=== PATIENT | female | born 1985 | race African-American/Black ===

== ENCOUNTER 2016-10-20 13:52 | Emergency (ER) | payer SELFPAY ==
--- NOTE | 2016-10-20 14:17 | ER Document Report ---
ED Medical Screen (RME) - General Stated Complaint: CHEST PAIN Notes: 31 yo female c/o pain left chest under rib cage. pain started tuesday, progressively worsening. hurts to breath. hx/o spontaneous pneumothorax about 4 yrs ago. feels similar. TRAVEL OUTSIDE OF THE [place] IN LAST 30 DAYS: No - Related Data Allergies/Adverse Reactions: No Known Allergies Allergy (Verified 08/18/16 11:59) Past Medical History - Immunizations Hx Diphtheria, Pertussis, Tetanus Vaccination: Yes Physical Exam - Vital signs Vitals: Temp Pulse Resp BP Pulse Ox 98.4 F 93 16 105/76 100 10/20/16 14:12 10/20/16 14:12 10/20/16 14:12 10/20/16 14:12 10/20/16 14:12 Course - Vital Signs Vital signs: Temp Pulse Resp BP Pulse Ox 98.4 F 93 16 105/76 100 10/20/16 14:12 10/20/16 14:12 10/20/16 14:12 10/20/16 14:12 10/20/16 14:12
--- NOTE | 2016-10-20 16:16 | ER Document Report ---
ED Respiratory Problem - General Chief Complaint: Breathing Difficulty Stated Complaint: CHEST PAIN Mode of Arrival: Ambulatory Information source: Patient TRAVEL OUTSIDE OF THE [place] IN LAST 30 DAYS: No - HPI Patient complains to provider of: Chest pain Onset: Other - 3 DAYS Duration: Intermittent episodes Initiating Event: Other - NO INJURY OR ILLNESS. No: Exertion, URI Quality of pain: Sharp Severity: Moderate Context: Smoker, Other - H/O PTX, THIS FEELS SIMILAR. denies: Hx asthma, Recent cardiac event, Recent immobilization, Recent surgery Chest pain/discomfort: Left - 9th & 10th RIB AREA Sputum amount: None Associated symptoms: Chest pain/discomfort. denies: Chills, Cough, Fever, Leg/ calf/joint pain Worsened by: DEEP BREATH, COUGH, SNEEZE Similar symptoms previously: Yes - W/ PTX Recently seen / treated by doctor: No - Related Data Allergies/Adverse Reactions: No Known Allergies Allergy (Verified 10/20/16 14:15) Past Medical History - General Information source: Patient - Social History Smoking Status: Current Every Day Smoker Chew tobacco use (# tins/day): No Smoking Education Provided: No - 1 MIN. Frequency of alcohol use: None Drug Abuse: None Lives with: Spouse/Significant other Family History: Reviewed & Not Pertinent Patient has suicidal ideation: No Patient has homicidal ideation: No - Past Medical History Cardiac Medical History: Reports: None Pulmonary Medical History: Reports: Other - SPONT. PTX. EENT Medical History: Reports: None Neurological Medical History: Reports: None Endocrine Medical History: Reports: None Renal/ Medical History: Reports: None. Denies: Hx Peritoneal Dialysis Malignancy Medical History: Reports: None GI Medical History: Reports: None Musculoskeltal Medical History: Reports None Psychiatric Medical History: Reports: None Surgical Hx: Negative - Immunizations Hx Diphtheria, Pertussis, Tetanus Vaccination: Yes Review of Systems - Review of Systems Constitutional: No symptoms reported EENT: No symptoms reported Cardiovascular: No symptoms reported. denies: Syncope, Dizziness, Lightheaded, Edema Respiratory: See HPI Gastrointestinal: No symptoms reported Genitourinary: No symptoms reported Female Genitourinary: denies: Musculoskeletal: No symptoms reported Skin: No symptoms reported Neurological/Psychological: No symptoms reported Physical Exam - Vital signs Vitals: Temp Pulse Resp BP Pulse Ox 98.4 F 93 16 105/76 100 10/20/16 14:12 10/20/16 14:12 10/20/16 14:12 10/20/16 14:12 10/20/16 14:12 Interpretation: Normal. No: Tachycardic, Tachypneic, Febrile - General General appearance: Appears well, Alert In distress: None - HEENT Head: Normocephalic Eyes: Normal Conjunctiva: Normal Ears: Normal Nasal: Normal Mouth/Lips: Normal Mucous membranes: Normal - Respiratory Respiratory status: No respiratory distress Chest status: Nontender Breath sounds: Normal Notes: INTERNAL TENDERNESS TO PERCUSSION OVER AREA OF COMPLAINT - Cardiovascular Rhythm: Regular - Abdominal Inspection: Normal - Extremities General upper extremity: Normal inspection General lower extremity: Normal inspection - Neurological Neuro grossly intact: Yes Cognition: Normal Orientation: AAOx4 - Psychological Associated symptoms: Normal affect, Normal mood - Skin Skin Temperature: Warm Skin Moisture: Dry Skin Color: Normal Skin Turgor: Elastic Course - Vital Signs Vital signs: Temp Pulse Resp BP Pulse Ox 98.4 F 93 18 105/76 100 10/20/16 14:12 10/20/16 14:12 10/20/16 15:28 10/20/16 14:12 10/20/16 14:12 - Diagnostic Test Radiology reviewed: Image reviewed, Reports reviewed Discharge - Discharge Clinical Impression: Pleuritic chest pain Condition: Stable Disposition: HOME, SELF-CARE Instructions: Pleurisy ([facility]), Anti-Inflammatory Medication ([facility]), Oral Narcotic Medication ([facility]), Stop Smoking ([facility]) Additional Instructions: STOP SMOKING. TAKE IBUPROFEN OR NAPROXEN TO HELP REDUCE INFLAMMATION. YOU MAY TAKE NORCO FOR PAIN IF NEEDED. FOLLOW UP IF NOT IMPROVING IN 2-3 DAYS, OR SOONER IF PROBLEMS. Prescriptions: Hydrocodone/Acetaminophen [[place] 5-325 mg Tablet] 1 tab PO Q4HP PRN #14 tablet PRN Reason: For Pain Forms: Smoking Cessation Education
[2016-10-20 16:45] VITALS: BP 130/80
--- NOTE | 2016-10-21 11:25 | EKG REPORT ---
SEVERITY:- OTHERWISE NORMAL ECG - SINUS RHYTHM VENTRICULAR PREMATURE COMPLEX : Confirmed by: Antonieta Gomez 21-Oct-2016 11:24:35
== END 2016-10-20 16:45 | disposition home or self-care (01) ==
LOC: ER 13:52
DX: R07.81 Pleurodynia (principal); R06.02 Shortness of breath; R07.9 Chest pain, unspecified; F17.210 Nicotine dependence, cigarettes, uncomplicated
CPT/HCPCS: 71020; 93005; 93010; 99285

== ENCOUNTER 2017-04-09 11:46 | Emergency (ER) | payer SELFPAY ==
[2017-04-09 12:36] LABS: APPEARANCE,URINE CLOUDY; BILIRUBIN,URINE NEGATIVE (NEGATIVE); GLUCOSE, URINE NEGATIVE (NEGATIVE); KETONES,URINE NEGATIVE (NEGATIVE); LEUKOCYTE ESTERASE,URINE LARGE (NEGATIVE); NITRITE,URINE NEGATIVE (NEGATIVE); PROTEIN,URINE NEGATIVE (NEGATIVE); URINE SPECIFIC GRAVITY 1.027
--- NOTE | 2017-04-09 13:19 | ER Document Report ---
ED General - General Chief Complaint: Abdominal Pain Stated Complaint: ABDOMINAL PAIN Time Seen by Provider: 04/09/17 12:05 Mode of Arrival: Ambulatory Information source: Patient Notes: 31-year-old female presents with complaints of dysuria urinary hesitation frequency. Patient denies any fevers or chills denies any nausea or vomiting, patient notes she had some flank pain a week ago but has none now. Patient states this feels like previous urinary tract infections TRAVEL OUTSIDE OF THE [place] IN LAST 30 DAYS: No - HPI Onset: Just prior to arrival Onset/Duration: Sudden Quality of pain: Burning Severity: Mild Pain Level: 1 Associated symptoms: Other Exacerbated by: Denies Relieved by: Denies Similar symptoms previously: Yes Recently seen / treated by doctor: No - Related Data Allergies/Adverse Reactions: No Known Allergies Allergy (Verified 10/20/16 14:15) Past Medical History - Social History Smoking Status: Never Smoker Cigarette use (# per day): No Chew tobacco use (# tins/day): No Smoking Education Provided: No Frequency of alcohol use: None Drug Abuse: None Family History: Reviewed & Not Pertinent Renal/ Medical History: Denies: Hx Peritoneal Dialysis Surgical Hx: Negative - Immunizations Hx Diphtheria, Pertussis, Tetanus Vaccination: Yes Review of Systems - Review of Systems Notes: REVIEW OF SYSTEMS: CONSTITUTIONAL : Denies fever, chills, or sweats. Denies recent illness. EENT: Denies eye, ear, throat, or mouth pain or symptoms. Denies nasal or sinus congestion or discharge. Denies throat, tongue, or mouth swelling or difficulty swallowing. CARDIOVASCULAR: Denies chest pain. Denies palpitations or racing or irregular heart beat. Denies ankle edema. RESPIRATORY: Denies cough, cold, or chest congestion. Denies shortness of breath, difficulty breathing, or wheezing. GASTROINTESTINAL: Denies abdominal pain or distention. Denies nausea, vomiting , or diarrhea. Denies blood in vomitus, stools, or per rectum. Denies black, tarry stools. Denies constipation. GENITOURINARY: Admits to suprapubic pressure urinary frequency hesitation FEMALE GENITOURINARY: Denies vaginal bleeding, heavy or abnormal periods, irregular periods. Denies vaginal discharge or odor. MUSCULOSKELETAL: Denies back or neck pain or stiffness. Denies joint pain or swelling. SKIN: Denies rash, lesions or sores. HEMATOLOGIC : Denies easy bruising or bleeding. LYMPHATIC: Denies swollen, enlarged glands. NEUROLOGICAL: Denies confusion or altered mental status. Denies passing out or loss of consciousness. Denies dizziness or lightheadedness. Denies headache. Denies weakness or paralysis or loss of use of either side. Denies problems with gait or speech. Denies sensory loss, numbness, or tingling. Denies seizures. PSYCHIATRIC: Denies anxiety or stress. Denies depression, suicidal ideation, or homicidal ideation. ALL OTHER SYSTEMS REVIEWED AND NEGATIVE. PHYSICAL EXAMINATION: GENERAL: Well-appearing, well-nourished and in no acute distress. HEAD: Atraumatic, normocephalic. EYES: Pupils equal round and reactive to light, extraocular movements intact, conjunctiva are normal. ENT: Nares patent, oropharynx clear without exudates. Moist mucous membranes. NECK: Normal range of motion, supple without lymphadenopathy LUNGS: Breath sounds clear to auscultation bilaterally and equal. No wheezes rales or rhonchi. HEART: Regular rate and rhythm without murmurs ABDOMEN: Soft, mild suprapubic tenderness on palpation no rebound no guarding Female : deferred Musculoskeletal: Normal range of motion, no pitting or edema. No cyanosis. NEUROLOGICAL: Cranial nerves grossly intact. Normal speech, normal gait. Normal sensory, motor exams PSYCH: Normal mood, normal affect. SKIN: Warm, Dry, normal turgor, no rashes or lesions noted. Dictation was performed using [employer] voice recognition software Physical Exam - Vital signs Vitals: Temp Pulse Resp BP Pulse Ox 98.1 F 76 16 109/66 100 04/09/17 11:53 04/09/17 11:53 04/09/17 11:53 04/09/17 11:53 04/09/17 11:53 Course - Re-evaluation Re-evalutation: 04/09/17 14:02 Patient is noted to have suprapubic tenderness, urinalysis is consistent with a UTI, patient is not , otherwise she looks well is in no distress will be treated with antibiotics and Pyridium After performing a Medical Screening Examination, I estimate there is LOW risk for ACUTE APPENDICITIS, BOWEL OBSTRUCTION, ACUTE CHOLECYSTITIS, PERFORATED DIVERTICULITIS, INCARCERATED HERNIA, PANCREATITIS, PELVIC INFLAMMATORY DISEASE, PERFORATED ULCER, ECTOPIC , or TUBO-OVARIAN ABSCESS, thus I consider the discharge disposition reasonable. Also, there is no evidence or peritonitis , sepsis, or toxicity. I have reevaluated this patient multiple times and no significant life threatening changes are noted. The patient and I have discussed the diagnosis and risks, and we agree with discharging home with close follow-up with the understanding that symptoms and presentations can change. We also discussed returning to the Emergency Department immediately if new or worsening symptoms occur. We have discussed the symptoms which are most concerning (e.g., bloody stool, fever, changing or worsening pain, vomiting) that necessitate immediate return. - Vital Signs Vital signs: Temp Pulse Resp BP Pulse Ox 97.9 F 59 L 16 109/79 99 04/09/17 13:23 04/09/17 13:23 04/09/17 13:23 04/09/17 13:25 04/09/17 13:23 - Laboratory Laboratory results interpreted by me: 04/09/17 12:15 Urine Urobilinogen 2.0 H Ur Leukocyte Esterase LARGE H Discharge - Discharge Clinical Impression: Dysuria UTI (urinary tract infection) Qualifiers: Urinary tract infection type: acute cystitis Hematuria presence: without hematuria Qualified Code(s): N30.00 - Acute cystitis without hematuria Condition: Stable Disposition: HOME, SELF-CARE Instructions: Urinary Tract Infection ([facility]) Additional Instructions: Follow up with your physician tomorrow for further care or return to the ED IMMEDIATELY if symptoms worsen or new concerns occur. If you cannot afford to follow up with your primary care physician a list of low cost clinics have been provided at the end of your discharge papers as well. Prescriptions: Cephalexin Monohydrate [Keflex 500 mg Capsule] 500 mg PO BID #14 capsule Phenazopyridine HCl [Pyridium] 200 mg PO Q8 #9 tablet Forms: Return to Work
[2017-04-09 13:50] VITALS: BP 109/79
== END 2017-04-09 13:30 | disposition home or self-care (01) ==
LOC: ER 11:46
DX: N30.00 Acute cystitis without hematuria (principal)
CPT/HCPCS: 81001; 81025; 99284

== ENCOUNTER 2017-07-04 08:49 | Observation (INO) | payer SELFPAY ==
[2017-07-04] MEDS ORDERED: HYDROCODONE/ACETAMINOPHEN 5-325 MG TABLET PO ONE (09:13)
--- NOTE | 2017-07-04 09:17 | ER Document Report ---
ED Medical Screen (RME) - General Chief Complaint: Chest Pain Stated Complaint: CHEST PAIN Time Seen by Provider: 07/04/17 09:12 Notes: Pt states she has left sided cp since yesterday. Has had chest tube for ptx before. no cardiac hx. Has had cough. TRAVEL OUTSIDE OF THE [place] IN LAST 30 DAYS: No - Related Data Allergies/Adverse Reactions: No Known Allergies Allergy (Verified 07/04/17 08:51) Past Medical History - Social History Chew tobacco use (# tins/day): No Frequency of alcohol use: None Drug Abuse: None Renal/ Medical History: Denies: Hx Peritoneal Dialysis - Immunizations Hx Diphtheria, Pertussis, Tetanus Vaccination: Yes Physical Exam - Vital signs Vitals: Temp Pulse BP Pulse Ox 98.7 F 46 L 125/83 93 07/04/17 08:53 07/04/17 08:53 07/04/17 08:53 07/04/17 08:53 Course - Vital Signs Vital signs: Temp Pulse Resp BP Pulse Ox 98.7 F 46 L 125/83 93 07/04/17 08:53 07/04/17 08:53 07/04/17 08:53 07/04/17 08:53
--- NOTE | 2017-07-04 09:53 | RADIOLOGY REPORT (SQ) ---
EXAM DESCRIPTION: CHEST PA/LAT COMPLETED DATE/TIME: 07/04/2017 9:34 am REASON FOR STUDY: left cp COMPARISON: CT chest 12/12/2013 Chest films 12/20/2013, 10/20/2016 EXAM PARAMETERS: NUMBER OF VIEWS: two views TECHNIQUE: Digital Frontal and Lateral radiographic views of the chest acquired. RADIATION DOSE: NA LIMITATIONS: none FINDINGS: LUNGS AND PLEURA: Left apical 10 to 20% pneumothorax. This report was called to Dr. Daya edwards. Right apical bulla or blebs are present. No right pneumothorax. No pleural effusions. No acute infiltrates. No definite [id number] mediastinal shift. MEDIASTINUM AND HILAR STRUCTURES: No masses or contour abnormalities. HEART AND VASCULAR STRUCTURES: Heart normal size. No evidence for failure. BONES: No acute findings. HARDWARE: None in the chest. OTHER: No other significant finding. IMPRESSION: 10 to 20% left-sided pneumothorax. COMMENT: Pertinent findings on the imaging study reported as a CRITICAL RESULT to Dr. Rogers at09 :45 on 07/04/2017. Category of Critical Result: Left pneumothorax TECHNICAL DOCUMENTATION: JOB ID: [id number] [employer]- All Rights Reserved
[2017-07-04 10:28] LABS: ABSOLUTE BASOPHILS # (AUTO) 0.1 10^3/uL (0.0-0.2); ABSOLUTE EOSINOPHILS # (AUTO) 0.2 10^3/uL (0.0-0.6); ABSOLUTE LYMPHOCYTES (AUTO) 2.4 10^3/uL (0.5-4.7); ABSOLUTE MONOCYTES (AUTO) 0.5 10^3/uL (0.1-1.4); ABSOLUTE NEUT (AUTO) 4.5 10^3/uL (1.7-8.2); BASOPHILS % (AUTO) 0.7 % (0-2); EOSINOPHILS % (AUTO) 2.3 % (0-6); HEMATOCRIT 39.6 % (36.0-47.0); HEMOGLOBIN 13.2 g/dL (12.0-15.5); LYMPHOCYTES % (AUTO) 31.4 % (13-45); MEAN CORPUSCULAR HEMOGLOBIN 30.6 pg (27.0-33.4); MEAN CORPUSCULAR HGB CONC 33.3 g/dL (32.0-36.0); MEAN CORPUSCULAR VOLUME 92 fl (80-97); MONOCYTES % (AUTO) 6.7 % (3-13); RED BLOOD COUNT 4.31 10^6/uL (3.72-5.28); RED CELL DISTRIBUTION WIDTH 13.1 % (11.5-14.0); SEGMENTED NEUTROPHILS % (AUTO) 58.9 % (42-78); WHITE BLOOD COUNT 7.7 10^3/uL (4.0-10.5)
[2017-07-04 10:36] LABS: APPEARANCE,URINE SLIGHTLY-CLOUDY; BILIRUBIN,URINE NEGATIVE (NEGATIVE); GLUCOSE, URINE NEGATIVE (NEGATIVE); KETONES,URINE NEGATIVE (NEGATIVE); LEUKOCYTE ESTERASE,URINE NEGATIVE (NEGATIVE); NITRITE,URINE NEGATIVE (NEGATIVE); PROTEIN,URINE NEGATIVE (NEGATIVE); URINE SPECIFIC GRAVITY 1.026; UROBILINOGEN,URINE NEGATIVE mg/dL (<2.0)
[2017-07-04 10:53] LABS: ALANINE AMINOTRANSFERASE 23 U/L (9-52); ALBUMIN 4.4 g/dL (3.5-5.0); ALKALINE PHOSPHATASE 43 U/L (38-126); ANION GAP 11 (5-19); ASPARTATE AMINO TRANSFERASE 17 U/L (14-36); BILIRUBIN,DIRECT 0.2 mg/dL (0.0-0.4); BILIRUBIN,TOTAL 0.4 mg/dL (0.2-1.3); BLOOD UREA NITROGEN 15 mg/dL (7-20); CALCIUM 9.5 mg/dL (8.4-10.2); CARBON DIOXIDE 26 mmol/L (22-30); CHLORIDE 107 mmol/L (98-107); CREATININE RESULT 0.66 mg/dL (0.52-1.25); GLUCOSE 80 mg/dL (75-110); POTASSIUM 4.7 mmol/L (3.6-5.0); SODIUM 143.6 mmol/L (137-145); TOTAL PROTEIN 7.8 g/dL (6.3-8.2)
[2017-07-04] MEDS ORDERED: NORMAL SALINE 1000 ML 1,000 ML IV ONE ×3 (11:14→15:36)
[2017-07-04] MEDS ORDERED: KETAMINE HCL INJ 500 MG/10 ML VIAL IV ONE (11:25)
[2017-07-04] MEDS ORDERED: MIDAZOLAM 2 MG/2 ML INJ IV ONE (11:25)
[2017-07-04] MEDS ORDERED: LIDOCAINE 1%/EPINEPHRINE INJ 20 ML VIAL INJ ONE (11:25)
--- NOTE | 2017-07-04 11:48 | ER Document Report ---
ED General - General Chief Complaint: Chest Pain Stated Complaint: CHEST PAIN Time Seen by Provider: 07/04/17 09:12 TRAVEL OUTSIDE OF THE [place] IN LAST 30 DAYS: No - HPI Patient complains to provider of: Left-sided chest pain Notes: Patient coming in left-sided chest pain. Patient's days ongoing since last night similar pain with a spontaneous pneumothorax. Patient states she does intermittently smoke marijuana and does smoke cigarettes. Patient denies any recent travel denies fevers chills nausea vomiting diarrhea. Patient is resting comfortably sleeping upon my evaluation. Easily arousable. Denies any trauma. - Related Data Allergies/Adverse Reactions: No Known Allergies Allergy (Verified 07/04/17 08:51) Home Medications: Current Home Medications No Home Medications 07/04/17 [History] Past Medical History - Social History Smoking Status: Current Every Day Smoker Chew tobacco use (# tins/day): No Frequency of alcohol use: None Drug Abuse: None Family History: Reviewed & Not Pertinent Patient has suicidal ideation: No Renal/ Medical History: Denies: Hx Peritoneal Dialysis - Immunizations Hx Diphtheria, Pertussis, Tetanus Vaccination: Yes Review of Systems - Review of Systems Constitutional: No symptoms reported EENT: No symptoms reported Cardiovascular: Chest pain Respiratory: No symptoms reported Gastrointestinal: No symptoms reported Genitourinary: No symptoms reported Female Genitourinary: No symptoms reported Musculoskeletal: No symptoms reported Skin: No symptoms reported Hematologic/Lymphatic: No symptoms reported Neurological/Psychological: No symptoms reported -: Yes All other systems reviewed and negative Physical Exam - Vital signs Vitals: Temp Pulse BP Pulse Ox 98.7 F 46 L 125/83 93 07/04/17 08:53 07/04/17 08:53 07/04/17 08:53 07/04/17 08:53 Interpretation: Normal - General General appearance: Appears well, Alert - HEENT Head: Normocephalic, Atraumatic Eyes: Normal Pupils: PERRL - Respiratory Respiratory status: No respiratory distress Chest status: Nontender Breath sounds: Other - No breath sounds left upper chest normal on the right Chest palpation: Normal - Cardiovascular Rhythm: Regular Heart sounds: Normal auscultation Murmur: No - Abdominal Inspection: Normal Distension: No distension Bowel sounds: Normal Tenderness: Nontender Organomegaly: No organomegaly - Back Back: Normal, Nontender - Extremities General upper extremity: Normal inspection, Nontender, Normal color, Normal ROM , Normal temperature General lower extremity: Normal inspection, Nontender, Normal color, Normal ROM , Normal temperature, Normal weight bearing. No: Ellis's sign - Neurological Neuro grossly intact: Yes Cognition: Normal Orientation: AAOx4 Artie Coma Scale Eye Opening: Spontaneous Artie Coma Scale Verbal: Oriented Artie Coma Scale Motor: Obeys Commands Melissa Coma Scale Total: 15 Speech: Normal Motor strength normal: LUE, RUE, LLE, RLE Sensory: Normal - Psychological Associated symptoms: Normal affect, Normal mood - Skin Skin Temperature: Warm Skin Moisture: Dry Skin Color: Normal Course - Re-evaluation Re-evalutation: 07/04/17 11:47 Patient coming in for evaluation of chest pain history of spontaneous pneumothorax chest x-ray confirms again a 10-20% spontaneous pneumothorax. Did discuss with surgeon on-call recommends chest tube at this time. 07/04/17 15:12 Chest tubes performed without difficulty. Patient underwent conscious sedation to. Patient tolerated procedure well chest x-ray confirmed tube placement. General surgeon down to evaluate patient at tooth placement agrees with admission. - Vital Signs Vital signs: Temp Pulse Resp BP Pulse Ox 98.7 F 48 L 16 119/75 96 07/04/17 08:53 07/04/17 12:04 07/04/17 14:16 07/04/17 14:16 07/04/17 14:16 - Laboratory Result Diagrams: 07/04/17 09:55 07/04/17 09:55 Procedures - Chest Tube Left Consent obtained: Yes Chest tube pre-insertion: Sterile PPE donned, Chloraprep applied Size of Portuguese Tube (cm): 24 Anesthetic type: 1% Lidocaine mL's of anesthetic: 8 Chest tube post-insertion: Air das heard, Sutured, Position confirmed w/ CXR, Water seal, Low intermittent suction Chest tube drainage: 0 Number of attempts: 1 Complications: No - Conscious Sedation Conscious sedation Time started: 12:10 - Approximate Time completed: 12:30 - Approximate Consent obtained: Yes Indication: Pneumothorax Last meal: Night prior to procedure Prior complications: Procedural sedation Normal healthy pt.: P1. - ASA Classification Airway Evaluation: Normal anatomy Mallampati Classification: Class 1 Used during procedure: Suction available, IV access obtained, Pulse ox on pt., court monitor on pt. Medications administered: Versed, Ketamine I personally performed/intraservice time: Sedation, Procedure, 30 min or less Complications: No Discharge - Discharge Clinical Impression: Spontaneous pneumothorax Condition: Good Disposition: ADMITTED INPATIENT Admitting Provider: Surgicalist - [place] [facility] Admitted: Surgical Floor
[2017-07-04] MEDS ORDERED: KETOROLAC TROMETHAMINE 10 MG TABLET PO PRN (14:11)
--- NOTE | 2017-07-04 14:35 | RADIOLOGY REPORT (SQ) ---
EXAM DESCRIPTION: CHEST SINGLE VIEW COMPLETED DATE/TIME: 07/04/2017 2:23 pm REASON FOR STUDY: sp chest tube COMPARISON: 07/04/2017 EXAM PARAMETERS: NUMBER OF VIEWS: One view. TECHNIQUE: Single frontal radiographic view of the chest acquired. RADIATION DOSE: NA LIMITATIONS: None. FINDINGS: LUNGS AND PLEURA: There may be a tiny residual pneumothorax seen in the apex on the left. MEDIASTINUM AND HILAR STRUCTURES: No masses. Contour normal. HEART AND VASCULAR STRUCTURES: Heart normal in size. Normal vasculature. BONES: No acute findings. HARDWARE: Thoracotomy tube is present on the left. OTHER: No other significant finding. IMPRESSION: Thoracotomy tube placement. Findings as described. TECHNICAL DOCUMENTATION: JOB ID: [id number]
--- NOTE | 2017-07-04 14:47 | HISTORY AND PHYSICAL E ---
History and Physical NAME: ERIC MEYER : 1985 AGE: 31Y ADMITTED: 07/04/2017 ROOM: Patient seen at the request of Dr. Nunez. HISTORY OF PRESENT ILLNESS: The patient presented to the emergency department complaining of left-sided chest pain. She is a chain smoker. She has had a history of pneumothorax 2014 treated with a mini Heimlich valve chest tube. She had intense coughing. She was seen in the emergency department after being brought to [facility] by a ground rescue where she had a chest x-ray, which revealed a 20% left-sided pneumothorax. A left 24-Tajik thoracostomy tube was placed by Dr. Nunez with appropriate expansion of her left lung. There was minimal posterolateral subcutaneous emphysema. Patient was admitted to the surgicalist service for observation. PAST MEDICAL HISTORY: None. PAST SURGICAL HISTORY: As per HPI. ALLERGIES: None known. SOCIAL HISTORY: Patient does smoke regularly. REVIEW OF SYSTEMS: As per HPI; all other systems unremarkable. PHYSICAL EXAMINATION: GENERAL: Patient examined in the emergency department. She is recovering from her conscious sedation. She does arouse and follow simple commands. HEENT: Eyes without icterus. LUNGS: Slightly diminished on the left side. HEART: Without murmur or gallop. There is some subcutaneous emphysema outside of the dressing extending over an area of approximately 3-4 cm. The remainder of examination is unremarkable. VASCULAR: Reveals palpable radial dorsalis pedis pulses bilateral. Followup chest x-ray shows a posterior but apically positioned left thoracostomy tube with sentinel hole well inside the pleural cavity. The lung appears to be expanded. IMPRESSION: 1. Recurrent left pneumothorax, spontaneous in patient with previous thoracostomy tube, now repeat thoracostomy placement by the emergency department with sufficient lung re-expansion. 2. Chronic smoker. 3. Emphysema. RECOMMENDATIONS: Patient will be admitted to the surgicalist service, with the chest tube placed on 20 cm of suction. We will obtain a chest x-ray in the morning, and determine the future of the chest tube thereafter. DICTATING PHYSICIAN: YASMIN ARTHUR M.D. [id number] PHY#: [id number] ID: [id number] JOB#: [id number] ACCT: [id number] cc:YASMIN ARTHUR M.D. >
[2017-07-04] MEDS: DOCUSATE SODIUM 100 MG CAPSULE PO SCH (17:36)
--- NOTE | 2017-07-04 18:32 | EKG REPORT ---
SEVERITY:- ABNORMAL ECG - SINUS RHYTHM PROMINENT P WAVES, NONDIAGNOSTIC : Confirmed by: Antonieta Gomez 04-Jul-2017 18:31:35
[2017-07-04] MEDS: HYDROCODONE/ACETAMINOPHEN 5-325 MG TABLET PO PRN (20:56)
[2017-07-04] MEDS: NICOTINE 21 MG/24 HR PATCH.TD24 TD SCH (20:56)
[2017-07-05] MEDS: ONDANSETRON HCL INJ/PF 4 MG/2 ML SDV IV PRN ×4 (02:26→21:07)
[2017-07-05] MEDS: HYDROCODONE/ACETAMINOPHEN 5-325 MG TABLET PO PRN ×4 (02:26→21:07)
--- NOTE | 2017-07-05 07:10 | RADIOLOGY REPORT (SQ) ---
EXAM DESCRIPTION: CHEST SINGLE VIEW COMPLETED DATE/TIME: 07/05/2017 6:56 am REASON FOR STUDY: Status post left thoracostomy tube COMPARISON: Chest x-ray 07/04/2017. EXAM PARAMETERS: NUMBER OF VIEWS: One view. TECHNIQUE: Single frontal radiographic view of the chest acquired. RADIATION DOSE: NA LIMITATIONS: None. FINDINGS: LUNGS AND PLEURA: No pneumothorax is seen on today's exam. Interval decrease in the subcu taneous emphysema in the left chest wall. The right lung is clear. Left perihilar atelectasis. MEDIASTINUM AND HILAR STRUCTURES: No masses. Contour normal. HEART AND VASCULAR STRUCTURES: Heart normal in size. Normal vasculature. BONES: No acute findings. HARDWARE: Left-sided chest tube is present. IMPRESSION: Interval resolution of the left-sided pneumothorax. Interval decrease in the subcutaneo us emphysema in the left chest wall. Left perihilar atelectasis. TECHNICAL DOCUMENTATION: JOB ID: [id number]
[2017-07-05] MEDS: DOCUSATE SODIUM 100 MG CAPSULE PO SCH ×2 (09:17→17:03)
--- NOTE | 2017-07-05 10:38 | PROGRESS NOTE E ---
Progress Note NAME: ERIC MEYER : 1985 AGE: 31Y DATE: 07/05/2017 ROOM: 403 SUBJECTIVE: Patient had a left chest tube inserted for pneumothorax in the emergency room yesterday. Followup chest x-ray showed lung completely expanded. There is no air leak on the Pleur-Evac. She feels a little bit better this morning. She said she is done smoking. We will put the chest tube to water seal and possibly discontinue the chest tube in a.m. DICTATING PHYSICIAN: NIKO MORALES M.D. [id number] PHY#: [id number] ID: [id number] JOB#: [id number] ACCT: [id number] cc: >
[2017-07-05] MEDS: NICOTINE 21 MG/24 HR PATCH.TD24 TD SCH (21:07)
[2017-07-06] MEDS: HYDROCODONE/ACETAMINOPHEN 5-325 MG TABLET PO PRN ×4 (07:28→23:45)
[2017-07-06] MEDS: ONDANSETRON HCL INJ/PF 4 MG/2 ML SDV IV PRN ×4 (07:28→23:45)
--- NOTE | 2017-07-06 09:36 | RADIOLOGY REPORT (SQ) ---
EXAM DESCRIPTION: CHEST SINGLE VIEW COMPLETED DATE/TIME: 07/06/2017 8:54 am REASON FOR STUDY: left chest tube for pneumothorax COMPARISON: CT chest 12/12/2013 Chest films 12/12/2013, 07/04/2017, 07/05/2017 EXAM PARAMETERS: NUMBER OF VIEWS: One view. TECHNIQUE: Single frontal radiographic view of the chest acquired. RADIATION DOSE: NA LIMITATIONS: None. FINDINGS: LUNGS AND PLEURA: A left-sided chest tube in place, with tip over the apex left hemithorax . No definite residual pneumothorax. Right hemithorax unremarkable aside from a stable apical bulla or bleb. MEDIASTINUM AND HILAR STRUCTURES: No masses. Contour normal. Small amount of pneumomediastinum rhina g the right heart border. HEART AND VASCULAR STRUCTURES: Heart normal in size. Normal vasculature. BONES: No acute findings. HARDWARE: Left chest tube OTHER: No other significant finding. IMPRESSION: Left chest tube in place. No pneumothorax. Trace pneumomediastinum along the right heart border TECHNICAL DOCUMENTATION: JOB ID: [id number]
[2017-07-06] MEDS: DOCUSATE SODIUM 100 MG CAPSULE PO SCH ×2 (09:37→17:21)
[2017-07-06] MEDS ORDERED: MORPHINE SULFATE 10 MG/ML INJ ONE (16:40)
[2017-07-06] MEDS ORDERED: MORPHINE SULFATE 10 MG/ML INJ IV ONE (17:00)
--- NOTE | 2017-07-06 18:38 | PROGRESS NOTE E ---
Progress Note NAME: ERIC MEYER : 1985 AGE: 31Y DATE: 07/06/2017 ROOM: 403 ASSESSMENT AND PLAN: The patient's chest x-ray this morning showed no pneumothorax but has a trace of pneumomediastinum along the right heart border. The chest tube was finally taken off suction this morning. There seems to be a very small amount of air leak. Because of this I decided to get another x-ray in the morning and possibly pull the chest tube out. Tomorrow will be just 48 hours post chest tube placement. DICTATING PHYSICIAN: NIKO MORALES M.D. [id number] PHY#: [id number] ID: [id number] JOB#: [id number] ACCT: [id number] cc: >
[2017-07-06] MEDS: NICOTINE 21 MG/24 HR PATCH.TD24 TD SCH (21:43)
[2017-07-07 01:36] VITALS: BP 108/58
[2017-07-07] MEDS ORDERED: MORPHINE SULFATE 10 MG/ML INJ ONE (05:33)
--- NOTE | 2017-07-07 06:24 | RADIOLOGY REPORT (SQ) ---
EXAM DESCRIPTION: CHEST SINGLE VIEW COMPLETED DATE/TIME: 07/07/2017 6:09 am REASON FOR STUDY: Left Side Pneumothorax Follow-up COMPARISON: Chest x-ray 07/06/2017 EXAM PARAMETERS: NUMBER OF VIEWS: One view. TECHNIQUE: Single frontal radiographic view of the chest acquired. RADIATION DOSE: NA LIMITATIONS: None. FINDINGS: LUNGS AND PLEURA: Trace left-sided pneumothorax. The right lung is clear. No focal conso lidation or pleural effusion. MEDIASTINUM AND HILAR STRUCTURES: No masses. Contour normal. HEART AND VASCULAR STRUCTURES: Heart normal in size. Normal vasculature. BONES: No acute findings. HARDWARE: Large bore left-sided chest tube is present. Radiopaque piercing at the bilateral nipple r egions. IMPRESSION: Trace left-sided pneumothorax. TECHNICAL DOCUMENTATION: JOB ID: [id number]
--- NOTE | 2017-07-07 06:31 | RADIOLOGY REPORT (SQ) ---
EXAM DESCRIPTION: CHEST SINGLE VIEW COMPLETED DATE/TIME: 07/07/2017 6:22 am REASON FOR STUDY: POST CHEST TUBE REMOVAL COMPARISON: Chest x-ray 07/07/2017 at 05:32 hours EXAM PARAMETERS: NUMBER OF VIEWS: One view. TECHNIQUE: Single frontal radiographic view of the chest acquired on 07/07/2017 at 05:42 hours. RADIATION DOSE: NA LIMITATIONS: None. FINDINGS: LUNGS AND PLEURA: Trace left-sided pneumothorax. No focal consolidation or pleural effusi on. MEDIASTINUM AND HILAR STRUCTURES: No masses. Contour normal. HEART AND VASCULAR STRUCTURES: Heart normal in size. Normal vasculature. BONES: No acute findings. HARDWARE: The left-sided chest tube has been removed. Radiopaque piercing noted in the bilateral nip ple regions. IMPRESSION: Trace left-sided pneumothorax. TECHNICAL DOCUMENTATION: JOB ID: [id number]
--- NOTE | 2017-07-07 06:37 | DISCHARGE SUMMARY E ---
Discharge Summary NAME: ERIC MEYER : 1985 AGE: 31Y ADMITTED: 07/04/2017 DISCHARGED: 07/07/2017 FINAL DIAGNOSIS: Spontaneous left pneumothorax, second episode. SUMMARY: This is a 31-year-old female who had a previous left pneumothorax treated with chest tube in the past, complaining of severe left chest pains just prior to admission on 07/04/2017. Chest x-ray then showed a left pneumothorax and a chest tube was placed in the emergency room. Chest x-ray yesterday showed the lung completely expanded. Chest x-ray just prior to removal of the chest tube was also done and showed complete expansion on the left lung. The chest tube was then removed on 07/07/2017. A chest x-ray was obtained immediately afterwards and noted to have no further evidence of pneumothorax post chest tube removal. Patient was then discharged on Percocet to take for the next couple of days if needed. Also, patient advised not to do any heavy lifting for the next 2 weeks. Patient will be scheduled for followup at the surgical clinic primarily for removal of the remaining stitches on the left chest. The wound was partially closed by the ER physician. Patient discharged improved on 07/07/2017 with the final diagnosis of spontaneous left pneumothorax, second episode. Also, patient advised to seek thoracic surgeon at [facility] for possible VATS repair. Also, patient promised to stop smoking. DICTATING PHYSICIAN: NIKO MORALES M.D. [id number] PHY#: [id number] ID: [id number] JOB#: [id number] ACCT: [id number] cc:Jannie RAMOS M.D. >
== END 2017-07-07 10:18 | disposition home or self-care (01) ==
LOC: ER 08:49 → EH 14:09 → 4N 16:34
PROVIDERS: ATTEND Surgery
PROC: 0W9B00Z Drainage of Left Pleural Cavity with Drainage Device, Open Approach (ICD-10-PCS; principal; 2017-07-04)
DX: J93.83 Other pneumothorax (principal); J98.2 Interstitial emphysema; F17.210 Nicotine dependence, cigarettes, uncomplicated; Z87.09 Personal history of other diseases of the respiratory system
CPT/HCPCS: 93005; 99285; 96360; 96361; 99152; 36415; 85025; 81025; 80053; 81001; 84484; 71020; 71010 ×4; 93010; 32551; J2250; J3490 ×3; J2270; J2405 ×2; J7030

== ENCOUNTER 2017-11-27 11:13 | Emergency (ER) | payer MEDICAID ==
--- NOTE | 2017-11-27 11:29 | ER Document Report ---
ED Medical Screen (RME) - General Chief Complaint: Post Surgical Pain Stated Complaint: CHEST PAIN Time Seen by Provider: 11/27/17 11:28 Mode of Arrival: Wheelchair Information source: Patient Notes: This is a 32-year-old female with a history of recurrent pneumothoraces status post bleb resection bilaterally 7 days ago. Pain presents with "bubbling sensation" in her chest as well as pain from both sides. TRAVEL OUTSIDE OF THE [place] IN LAST 30 DAYS: No - Related Data Allergies/Adverse Reactions: No Known Allergies Allergy (Verified 07/04/17 08:51) Past Medical History - Social History Chew tobacco use (# tins/day): No Frequency of alcohol use: None Drug Abuse: None Renal/ Medical History: Denies: Hx Peritoneal Dialysis - Immunizations Hx Diphtheria, Pertussis, Tetanus Vaccination: Yes History of Influenza Vaccine for 06/2017 - 11/2017 Season: Yes Influenza Administration Date for 06/2017 - 11/2017 Season: 05/30/17 Physical Exam - Vital signs Vitals: Temp Pulse Resp BP Pulse Ox 98.5 F 120 H 18 131/100 H 100 11/27/17 11:20 11/27/17 11:20 11/27/17 11:20 11/27/17 11:20 11/27/17 11:20 Course - Vital Signs Vital signs: Temp Pulse Resp BP Pulse Ox 98.5 F 120 H 18 131/100 H 100 11/27/17 11:20 11/27/17 11:20 11/27/17 11:20 11/27/17 11:20 11/27/17 11:20
--- NOTE | 2017-11-27 12:07 | RADIOLOGY REPORT (SQ) ---
EXAM DESCRIPTION: CHEST PA/LAT COMPLETED DATE/TIME: 11/27/2017 11:38 am REASON FOR STUDY: chest pain s/p bilateral pulmonary bleb resection COMPARISON: 07/14/2017. EXAM PARAMETERS: NUMBER OF VIEWS: two views TECHNIQUE: Digital Frontal and Lateral radiographic views of the chest acquired. RADIATION DOSE: NA LIMITATIONS: none FINDINGS: LUNGS AND PLEURA: Surgical changes in the lung apices. Bilateral apical pneumothorax, rou ghly 10%. MEDIASTINUM AND HILAR STRUCTURES: No masses or contour abnormalities. HEART AND VASCULAR STRUCTURES: Heart normal size. No evidence for failure. BONES: No acute findings. HARDWARE: None in the chest. OTHER: No other significant finding. IMPRESSION: SURGICAL CHANGES IN THE LUNG APICES WITH APPROXIMATELY 10% BILATERAL APICAL PNEUMOTHORAC ES. COMMENT: Pertinent findings on the imaging study reported as a CRITICAL RESULT to DR. TRUJILLO at12: 01 on 11/27/2017. Category of Critical Result: Pneumothorax. TECHNICAL DOCUMENTATION: JOB ID: [id number] [employer]- All Rights Reserved Reading location - IP/workstation name: [email or web address]
--- NOTE | 2017-11-27 12:16 | ER Document Report ---
ED General - General Chief Complaint: Post Surgical Pain Stated Complaint: CHEST PAIN Time Seen by Provider: 11/27/17 11:28 Mode of Arrival: Wheelchair Notes: Patient had surgery at [facility] last Tuesday for bilateral apical lung blebs. She had chest tubes in both hemithoraces and they were removed on Tuesday. She was discharged from that facility on . Today, she is complaining of pain in the anterior lower center chest region beginning Tuesday and of feeling "bubbling" of the right lateral chest wall near the thoracotomy tube insertion site that started yesterday. Patient has a history of a spontaneous pneumothorax in November 2011. Has not had significant cough or chest congestion. Has not noted any fever. She has gabapentin for pain and also oxycodone 5 mg , but she is only been taking them at night because they make her so sleepy during the day. TRAVEL OUTSIDE OF THE [place] IN LAST 30 DAYS: No - Related Data Allergies/Adverse Reactions: No Known Allergies Allergy (Verified 11/27/17 12:05) Past Medical History - General Information source: Patient - Social History Smoking Status: Former Smoker - Stopped about a year ago. Chew tobacco use (# tins/day): No Frequency of alcohol use: None Drug Abuse: None Family History: Reviewed & Not Pertinent Patient has suicidal ideation: No Patient has homicidal ideation: No Pulmonary Medical History: Reports: Other - Spontaneous pneumothorax November, , apical blebs, see HPI - Immunizations Hx Diphtheria, Pertussis, Tetanus Vaccination: Yes Review of Systems - Review of Systems Notes: REVIEW OF SYSTEMS: CONSTITUTIONAL : Denies fever. EENT: Denies eye, ear, nose or mouth or throat pain or other symptoms. CARDIOVASCULAR: See HPI. RESPIRATORY: Denies cough, chest congestion, or shortness of breath. Does have pain in the lower anterior chest when she takes a deep breath. GASTROINTESTINAL: Denies abdominal pain or nausea, vomiting, or diarrhea. GENITOURINARY: Denies difficulty or painful urinating, urinary frequency, blood in urine. MUSCULOSKELETAL: Denies back or neck pain. Denies joint pain or swelling. SKIN: Denies rash or skin lesions. NEUROLOGICAL: Denies LOC or altered mental status. Denies headache. Denies sensory loss or motor deficits. ALL OTHER SYSTEMS REVIEWED AND NEGATIVE. Physical Exam - Vital signs Vitals: Temp Pulse Resp BP Pulse Ox 98.5 F 120 H 18 131/100 H 100 11/27/17 11:20 11/27/17 11:20 11/27/17 11:20 11/27/17 11:20 11/27/17 11:20 Interpretation: Normal, Tachycardic - Mild. - Notes Notes: PHYSICAL EXAMINATION: GENERAL: Well-appearing, in no acute distress. HEAD: Atraumatic, normocephalic. EYES: Pupils equal round and reactive to light, extraocular movements intact. ENT: oropharynx clear without exudates. Moist mucous membranes. NECK: Normal range of motion, supple. LUNGS: Breath sounds clear and equal bilaterally. Palpation of the right chest wall does not reveal any findings that would suggest subcutaneous emphysema. However, patient's description of symptoms certainly suggest that is what is the "bubbling, that she noted. HEART: Regular rate and rhythm without murmurs. ABDOMEN: Soft, nontender. No guarding or rebound. No masses. BACK: No tenderness throughout entire back. EXTREMITIES: Normal range of motion without pain. NEUROLOGICAL: Normal speech, normal gait. Normal sensory, motor, and reflex exams. Awake, alert, and oriented x3. Cranial nerves normal. PSYCH: Normal mood, normal affect. SKIN: Warm, dry, no rashes. Course - Re-evaluation Re-evalutation: 11/28/17 20:[address] Bal, precision honer thoracic surgeon at [facility], and he indicated that the finding of that small of an area of pneumothorax might actually be scar tissue formation from patient's disease process that makes it look like there is a pneumothorax, but even so, small pneumothorax at this point postop would not be unusual. He feels patient can be discharged home to return as needed. - Vital Signs Vital signs: Temp Pulse Resp BP Pulse Ox 98.5 F 120 H 12 117/83 100 11/27/17 11:20 11/27/17 11:20 11/27/17 13:14 11/27/17 13:14 11/27/17 13:14 - Diagnostic Test Radiology results interpreted by me: 11/28/17 20:19 Chest x-ray reveals bilateral 10% pneumothoraces. Discharge - Discharge Clinical Impression: Bleb, lung, Chest wall pain Condition: Stable Disposition: HOME, SELF-CARE Additional Instructions: CHEST WALL PAIN: Your chest pain may be coming from the chest wall. This is often caused by straining the muscles or joints in the chest during physical activity, direct trauma, coughing, or vigorous vomiting. Persons with arthritis are especially prone to this type of pain, due to inflammation of the cartilage joints near the breast bone. Occasionally, no cause can be found. Rest from strenuous physical activity. This kind of chest pain is usually made worse by movement of the chest. Depending on the symptoms, we may prescribe medicine for pain, muscle relaxation, and antiinflammatory effects. If the pain is new, and seems to be due to muscle strain, cold packs can help. Otherwise, apply gentle warmth to the painful area for 15 minutes every hour or two. You should call contact the doctor immediately if things change. Further evaluation is needed if you develop a fever or cough, if the nature of the pain changes, or if you become short of breath. Your chest x-ray shows approximately 10% pneumothorax bilaterally. Possibly, the appearance on chest x-ray may be the position that your lungs have grown into due to your pulmonary blebs. Your lung function is normal with 100% oxygen saturation and respirations of only 18 a minute. The "bubbles" that you are feeling are probably some air that is located subcutaneously from where the chest tube was located. I believe all of your symptoms will resolve over the next few days. Take your pain medications as prescribed or even take them a little more if needed. Return if you develop significant fevers, worsening chest pain, or difficulty breathing. FOLLOW-UP CARE: If you have been referred to a physician for follow-up care, call the physician s office for an appointment as you were instructed or within the next two days. If you experience worsening or a significant change in your symptoms, notify the physician immediately or return to the Emergency Department at any time for re-evaluation.
[2017-11-27 13:31] VITALS: BP 117/83
== END 2017-11-27 13:31 | disposition home or self-care (01) ==
LOC: ER 11:13
DX: J43.9 Emphysema, unspecified (principal); R07.89 Other chest pain; G89.18 Other acute postprocedural pain; Z87.891 Personal history of nicotine dependence; Z79.899 Other long term (current) drug therapy
CPT/HCPCS: 71046; 99283